=== PATIENT | male | born 1950 | race African-American/Black ===

== ENCOUNTER → 2017-12-08 | Day surgery (SDC) | payer OTHER ==
[~2017-12-08] MED LIST: ALLO100T PO; ATEN50TA PO; ATOR40TA59 PO; BRIM5DRO3 EACHEYE; DORZ10DR3 EACHEYE; FURO20TA3 PO; GLYB5TAB3 PO; IV RINGERS SOLUTION,LACTATED 1,000 ML IV SCH; LATA2.5D3 EACHEYE; LIDOCAINE 1% Multi-Dose 20 ML VIAL. ONE; LIDOCAINE 1% PF 2 ML VIAL. ID PRN; METF10002 PO; OLME20TA17 PO; ONDANSETRON PF 4 MG/2 ML VIAL. IV PRN; POTA20TA4 PO; PROCHLORPERAZINE 10 MG/2 ML VIAL. IV PRN; PROPOFOL 10,000 MCG/ML (20ML) VIAL IV ONE; PROPOFOL 40 ML IV ONE; TAMS0.4C2 PO; [UNRECOGNIZED DRUG - OTHER] PO
[2017-12-08 11:22] VITALS: BP 119/78
== END | disposition home or self-care (01) ==
LOC: SURG 09:41
PROVIDERS: ATTEND Internal Medicine Gastroenterology
DX: Z12.11 Encounter for screening for malignant neoplasm of colon (principal); Z79.899 Other long term (current) drug therapy; Z72.89 Other problems related to lifestyle; Z88.6 Allergy status to analgesic agent; Z88.8 Allergy status to other drugs, medicaments and biological substances; Z91.048 Other nonmedicinal substance allergy status
CPT/HCPCS: 45378; 82947; J2704; J7120